=== PATIENT | male | born 2000 | race Caucasian/White ===

== ENCOUNTER 2022-11-18 20:17 | Emergency (ER) | payer OTHER, SELFPAY ==
[2022-11-18 20:53] VITALS: BP 165/74; PULSE 81; TEMP 36.2; O2SAT 100; BMI 25.8
--- NOTE | 2022-11-18 22:06 | ED_ITS ---
HPI - Skin/Abscess/Foreign Bdy General Chief complaint: Skin/Abscess/Foreign Body Stated complaint: Rash on Left leg Time Seen by Provider: 11/18/22 21:54 History of Present Illness HPI narrative: This 22-year-old male comes in reporting erythema that is not very itchy or painful in the left groin region. He states that he is otherwise in good health. Related Data Home Medications Medication Instructions Recorded Confirmed finasteride 5 mg tablet 5 mg PO QDAY 10/04/22 10/04/22 Allergies Allergy/AdvReac Type Severity Reaction Status Date / Time pollen extracts Allergy Mild Congested Verified 10/04/22 17:36 Review of Systems Status of ROS: Reports: 10 or more systems reviewed and unremarkable except as noted in History and below Narrative: Constitutional: No fevers, no weight gain or loss. Eyes: No discharge. No vision changes. HENT: No congestion, no sore throat, no ear pain. Cardiovascular: No chest pain, no palpitations. Respiratory: No shortness of breath, no wheezes, no cough. Gastrointestinal: No abdominal pain, no vomiting, no diarrhea. Genitourinary: No dysuria, no hematuria. Musculoskeletal: Normal range of motion. Skin: Well-defined border to an area of erythema in the left inguinal region on the left medial upper thigh. Neurological: No dizziness, weakness, sensory change, speech change. Endo/Heme/Allergies: No bruising or bleeding. No polydipsia. Pysch: no suicidality, no anxiety, no insomnia. All other systems reviewed and are negative. PFSH [facility] Social History Smoking Status: Never smoker Exam Narrative: Exam Narrative: Constitutional: Well-developed, well-nourished, no acute distress. HEENT: Normocephalic, atraumatic. Neck: Normal range of motion. Nontender. Supple. Heart: Intact distal pulses. Lungs: No chest discomfort. No wheezes, rhonchi, or rales. Abdomen: Nontender. Back: Normal range of motion. Extremities: Normal range of motion. No injury. Skin: Intact. No rash. Warm. Well-defined border to an area of erythema in the left upper medial thigh next to the inguinal region. This is typical of tinea cruris. Neurologic: No altered sensation. No weakness. Alert and oriented. Psychiatric: No suicidality. No anxiety or depression. No insomnia. Nursing notes and vitals signs are reviewed. Const: Vital Signs, click to edit/add: Vital Signs - 24 hr 11/18/22 20:53 Temperature 97.2 F L Pulse Rate [Pulse Oximeter] 81 Blood Pressure [Ri ght Upper Arm] 165/74 H Pulse Oximetry 100 Oxygen Delivery Me thod Room Air Course Vital Signs Vital signs: Initial Vital Signs Temperature 97.2 F L 11/18/22 20:53 Temperature Source Temporal Artery Scan 11/18/22 20:53 Pulse Rate 81 11/18/22 20:53 Blood Pressure 165/74 H 11/18/22 20:53 Blood Pressure Mean 104 11/18/22 20:53 Blood Pressure Position Sitting 11/18/22 20:53 Pulse Oximetry 100 11/18/22 20:53 Oxygen Delivery Method 11/18/22 20:53 Vital Signs Temperature 97.2 F L 11/18/22 20:53 Pulse Rate 81 11/18/22 20:53 Blood Pressure 165/74 H 11/18/22 20:53 Pulse Oximetry 100 11/18/22 20:53 Oxygen Delivery Method 11/18/22 20:53 Temperature 97.2 F L 11/18/22 20:53 Pulse Rate 81 11/18/22 20:53 Blood Pressure 165/74 H 11/18/22 20:53 Pulse Oximetry 100 11/18/22 20:53 Oxygen Delivery Method 11/18/22 20:53 MDM - Skin/Abscess/Foreign Bdy MDM Narrative Medical decision making narrative: This patient comes in with skin changes in the left inguinal region and medial proximal thigh typical of tinea cruris. There is no sign of abscess or cellulitis. I advised the patient to use clotrimazole as directed for treatment of this condition. I also recommended that he keep the area dry as it can thri ve more in setting of moisture. Discharge Plan Discharge Clinical Impression: Tinea cruris Patient Disposition: Home, Self-Care Condition: Unchanged Additional Instructions: Use Lotrimin (Clotrimazole) as indicated. Follow up with MD or return if worsening symptoms happen. Prescriptions: No Action finasteride 5 mg tablet 5 mg PO QDAY Follow Up/Referrals: Provider,Not a Local [Primary Care Provider] - Stand Alone [facility] Info Instructions
== END 2022-11-18 22:36 | disposition home or self-care (01) ==
LOC: ED 22:15
PROVIDERS: Emergency Provider Emergency Medicine Emergency Medical Services
DX: B35.6 Tinea cruris (principal)
CPT/HCPCS: 99282; 99283; 99284

== ENCOUNTER 2024-07-02 07:08 | Outpatient (CLI) | payer OTHER, SELFPAY ==
--- NOTE | 2024-07-02 07:15 | MR_ITS ---
[facility] [address] [facility] [address] Phone:?[phone] Fax:?[phone] Referring Physician Information: Isidoro Tovar M.D. [address] [facility] [address] Phone:?[phone] Fax:?[phone] Patient:Sarah Murguia D.O.B:?2000 Sex:?Male Phone:? [facility] MRN:?[id number] Exam Date:?07/02/2024 EXAM: MRI of the RIGHT KNEE, without contrast CLINICAL INFORMATION: Male, 23 years old, with lateral right knee pain. INDICATION: Evaluate for lateral meniscal tear. PRIOR SURGERY: None reported. PLAIN FILMS: None available. COMPARISONS: No prior MRIs available. TECHNICAL INFORMATION: Using a 1.5T MR scanner and a localizing surface coil: sagittals: PD, PDFS coronals: PD, T2FS axials: PD, PDFS SEDATION: None CONTRAST: None FINDINGS: Knee joint: Effusion: Moderate-marked right knee joint effusion, with evidence of synovitis. Popliteal cyst: None. Loose bodies: None. Subcutaneous and extra-articular soft tissues: Unremarkable. Ligaments: ACL: Intact ACL anteromedial and posterolateral bundles, without sprain or tear. PCL: Intact PCL, without acute or chronic injury. MCL: Intact MCL superficial and deep layers, without injury. LCL: Intact LCL, without injury. Posterolateral corner: No posterolateral corner soft tissue injury. Popliteus, biceps femoris, iliotibial band, popliteofibular ligament and lateral gastrocnemius are intact. Posteromedial corner: No posteromedial corner soft tissue injury. Semimembranosus, pes anserine tendons and posterior oblique ligament are without injury, tendinopathy or bursitis. Extensor mechanism: Patellar tendon: Intact, without tendinopathy. Quadriceps tendon: Intact, without tendinopathy. Retinacula: Medial and lateral retinacula are intact. Fat pads: Mild edema-like signal is present throughout the knee fat pads, in keeping with synovitis. Medial compartment: Medial meniscus: No articular surface, meniscosynovial junction or root tear. No displacement, extrusion or parameniscal cyst. Medial femoral condyle: No chondromalacia or osteochondral abnormality. Medial tibial plateau: No chondromalacia or osteochondral abnormality. Lateral compartment: Lateral meniscus: No articular surface, meniscosynovial junction or root tear. No displacement, extrusion or parameniscal cyst. Lateral femoral condyle: No chondromalacia or osteochondral abnormality. Lateral tibial plateau: No chondromalacia or osteochondral abnormality. Patellofemoral joint: Patella: Broad-based mild grade II chondromalacia of the lateral patellar facet, without reactive osseous changes (sagittal PDFS series 6 image 12) Trochlea: Broad-based mild grade II chondromalacia of the lateral trochlear facet, without reactive osseous changes Proximal tibiofibular joint: Unremarkable, without evidence of ligament sprain injury, joint effusion or adjacent marrow edema. Bones: Mild edema-like signal in the anterior aspect of the lateral femoral epicondyle, without fracture (coronal STIR series 8 image 15 and axial T2FS series 4 image 14). IMPRESSION: 1. Mild contusion of the anterior aspect of the lateral femoral epicondyle, without fracture. 2. 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 3. Moderate-marked knee joint effusion, with synovitis. No popliteal (Licona's) cyst. 4. No medial or lateral meniscal tear. 5. No cruciate or collateral ligament sprain/tear. 6. No osteochondral abnormality of the medial or lateral compartment. BC Electronically signed on 07/02/2024 11:04:00 AM by Eder Collazo M.D.
== END 2024-07-02 07:09 | disposition home or self-care (01) ==
PROVIDERS: Visit Provider Orthopaedic Surgery Sports Medicine
DX: M25.561 Pain in right knee (principal); S80.01XA Contusion of right knee, initial encounter; M94.261 Chondromalacia, right knee; M25.461 Effusion, right knee; S83.421A Sprain of lateral collateral ligament of right knee, initial encounter; S83.281A Other tear of lateral meniscus, current injury, right knee, initial encounter
CPT/HCPCS: 73721